=== PATIENT | male | born 1980 | race Caucasian/White ===

== ENCOUNTER 2021-06-06 19:24 | Emergency (ER) | payer BC, MEDICAID, SELFPAY ==
[2021-06-06 19:25] VITALS: BP 181/110; PULSE 86; RESP 16; TEMP 37.3; O2SAT 99; BMI 34.4
--- NOTE | 2021-06-06 19:30 | ECG_ITS ---
APPROVED REPORT Exam: Resting ECG HR:76 bpm ECG Measurements Heart Rate 76 AXES OH 147 P 65 QRSd 105 QRS 94 QT 390 T 53 QTc 420 Conclusion SINUS RHYTHM POSSIBLE RIGHT ATRIAL ENLARGEMENT [0.25mV P-WAVE] POSSIBLE LEFT ATRIAL ENLARGEMENT [-0.1mV P-WAVE IN V1/V2] BORDERLINE RIGHT AXIS DEVIATION [QRS AXIS > 90] BORDERLINE ECG UNCONFIRMED REPORT Electronically signed by : Gonzalo See MD 06/16/2021 17:38:10
[2021-06-06 19:48] VITALS: BP 141/90
--- NOTE | 2021-06-06 19:49 | CT_ITS ---
PROCEDURE INFORMATION: Exam: CT Head Without Contrast Exam date and time: 06/06/2021 8:04 PM Age: 40 years old Clinical indication: Other: Headache; Additional info: LUCIANO TECHNIQUE: Imaging protocol: Computed tomography of the head without contrast. Radiation optimization: All CT scans at this facility use at least one of these dose optimization techniques: automated exposure control; mA and/or kV adjustment per patient size (includes targeted exams where dose is matched to clinical indication); or iterative reconstruction. COMPARISON: No relevant prior studies available. FINDINGS: Brain: No large territorial infarction. No hemorrhage. No mass effect or midline shift. Cerebral ventricles: No ventriculomegaly. Paranasal sinuses: No fluid levels. Mastoid air cells: Visualized mastoid air cells are well aerated. Bones/joints: No acute fracture. Soft tissues: No significant soft tissue abnormality. IMPRESSION: No acute intracranial abnormality.
--- NOTE | 2021-06-06 19:49 | CT_ITS ---
PROCEDURE INFORMATION: Exam: CT Cervical Spine Without Contrast Exam date and time: 06/06/2021 8:06 PM Age: 40 years old Clinical indication: Neck pain; Additional info: Neck pain, and coughing TECHNIQUE: Imaging protocol: Computed tomography images of the cervical spine without contrast. Radiation optimization: All CT scans at this facility use at least one of these dose optimization techniques: automated exposure control; mA and/or kV adjustment per patient size (includes targeted exams where dose is matched to clinical indication); or iterative reconstruction. COMPARISON: CT HEAD/BRAIN WO CON 06/06/2021 8:04 PM FINDINGS: Bones/joints: Mild curvature on AP projection. No acute fracture. Lungs: Lung apices are normal. Soft tissues: No soft tissue swelling. IMPRESSION: No acute findings.
--- NOTE | 2021-06-06 19:49 | CT_ITS ---
PROCEDURE INFORMATION: Exam: CT Thoracic Spine Without Contrast Exam date and time: 06/06/2021 8:10 PM Age: 40 years old Clinical indication: Pain in thoracic spine; Additional info: Neck pain into shoulder TECHNIQUE: Imaging protocol: Computed tomography images of the thoracic spine without contrast. Radiation optimization: All CT scans at this facility use at least one of these dose optimization techniques: automated exposure control; mA and/or kV adjustment per patient size (includes targeted exams where dose is matched to clinical indication); or iterative reconstruction. COMPARISON: CT CERVICAL SPINE WO CON 06/06/2021 8:06 PM FINDINGS: Vertebrae: No acute fracture. Soft tissues: Unremarkable. Lungs: Dependent ground-glass pulmonary opacities with partially visualized granuloma within the posterior right lung. IMPRESSION: No acute osseous abnormality. If there is clinical concern for pulmonary pathology, chest CT can be obtained separately.
[2021-06-06 20:00] VITALS: BP 129/76; PULSE 85; O2SAT 97
[2021-06-06 20:03] LABS: Alanine Aminotransferase 64 U/L (12-78); Albumin Level 4.6 g/dl (3.5-5.0); Albumin/Globulin Ratio 1.4 (1.1-1.8); Alkaline Phosphatase 95 U/L (38-126); Anion Gap 12.7 mEq/L (5-15); Aspartate Amino Transferase 53 U/L (17-59); Basophils # 0.1 K/mm3 (0-0.2); Basophils % 2.1 % (0.1-2.0); Bilirubin,Total 0.6 mg/dl (0.2-1.3); Blood Urea Nitrogen 8 mg/dl (9-20); Calcium 8.8 mg/dl (8.4-10.2); Carbon Dioxide 25 mmol/L (22.0-30.0); Chloride 102 mmol/L (98-107); Creatinine Clearance Estimated 229 mL/min (50-200); Eosinophils # 0.2 K/mm3 (0.0-0.4); Eosinophils % 2.9 % (0.1-12.0); Estimated Glomerular Filt Rate 148 ml/min (>60); GFR (African American) 180 ML/MIN (>60); Globulin 3.2 g/dL (1.3-3.2); Glucose 103 mg/dl (74-100); Hematocrit 40.4 % (42.0-52.0); Hemoglobin 13.7 g/dL (14.1-18.0); Lymphocytes # 2.1 K/mm3 (0.7-4.5); Lymphocytes % 37.5 % (10-50); Mean Corpuscular Volume 85.3 fl (80-94); Mean Platelet Volume 7.6 fl (7.4-10.4); Monocytes # 0.3 K/mm3 (0.1-1.0); Monocytes % 5.9 % (1.7-9.3); Neutrophils % 51.7 % (37.0-80.0); Platelet Count 261 K/mm3 (142-424); Potassium 3.7 mmoL/L (3.5-5.1); Red Blood Count 4.73 M/mm3 (4.60-6.20); Red Cell Distribution Width 13.9 % (11.5-17.5); Sodium 136 mmol/L (136-145); Total Protein,Serum 7.8 g/dl (6.3-8.2); White Blood Count 5.7 K/mm3 (4.8-10.8)
--- NOTE | 2021-06-06 20:04 | PC.NURSE ---
Pt gone to RAD
--- NOTE | 2021-06-06 20:06 | [facility].EDGENADL ---
ED Disposition Clinical Impression: Cervical radicular pain Disposition: Home, Self-Care Condition on Discharge: Good Instructions: DI for Cervical Radiculopathy Additional Instructions: use meds and see pcp for follow up Prescriptions: predniSONE [Prednisone 20mg Tab] 20 mg PO BID #10 tab Transmission Status: Pending to [facility] Referrals: Ondina Dior APRN [Primary Care Provider] - - Critical Care Critical Care Time: No Attestation: On 06/06/21, the high probability of a clinically significant, sudden or life threatening deterioration of the following system(s) required my full and direct attention, intervention and personal management. The time I documented below is in addition to time spent performing reported procedures but includes the following listed in this critical care notation. Medical Decision Making - Medical Records Medical records reviewed: Yes: I reviewed the patient's medical records. - [place] Inquiry Pt receiving controlled substance: No Vital Signs: 06/06/21 19:25 Temperature 99.2 F Temperature Source Oral Pulse Rate [Right Radial] 86 Respiratory Rate 16 Blood Pressure [Right Arm] 181/110 H Blood Pressure Mean [Right Arm] 133 Blood Pressure Source [Right Arm] Automatic Cuff Blood Pressure Position [Right Arm] Sitting 02 Sat by Pulse Oximetry 99 Oxygen Delivery Method Room Air - Lab Data Lab results reviewed: Yes: I reviewed the patient's lab results. Lab Results 06/06/21 19:38: WBC 5.7, RBC 4.73, Hgb 13.7 L, Hct 40.4 L, MCV 85.3, MCH 29.0, MCHC 34.0, RDW 13.9, Plt Count 261, MPV 7.6, Neut % (Auto) 51.7, Lymph % (Auto) 37.5, [place] % (Auto) 5.9, Eos % (Auto) 2.9, Baso % (Auto) 2.1 H, Neut # (Auto) 3.0, Lymph # (Auto) 2.1, [place] # (Auto) 0.3, Eos # (Auto) 0.2, Baso # (Auto) 0.1 06/06/21 19:38: Sodium 136, Potassium 3.7, Chloride 102, Carbon Dioxide 25, Anion Gap 12.7, BUN 8 L, Creatinine 0.60 L, Estimated Creat Clear 229, Estimated GFR 148, Est GFR ( Amer) 180, Glucose 103 H, Calcium 8.8, Total Bilirubin 0.6, AST 53, ALT 64, Alkaline Phosphatase 95, C-Reactive Protein 2.6, Total Protein 7.8, Albumin 4.6, Globulin 3.2, Albumin/Globulin Ratio 1.4 Result diagrams: 06/06/21 19:38 06/06/21 19:38 Orders (Tests/Meds): ED MEDICATIONS Generic Name Dose Route Start Last Admin Trade Name Freq PRN Reason Stop Dose Admin Lactated Ringer's 1,000 mls @ 999 mls/hr 06/06/21 20:00 06/06/21 19:50 Lactated Ringer's 1000 Ml Bag IV 06/06/21 21:00 999 mls/hr .[id number] CLAUDIA Administration Discontinued Medications Generic Name Dose Route Start Last Admin Trade Name Freq PRN Reason Stop Dose Admin Ketorolac Tromethamine 30 mg 06/06/21 19:49 06/06/21 19:50 Ketorolac 30mg/Ml Vial IV 06/06/21 19:50 30 mg ONCE ONE Administration Methylprednisolone Sodium Succinate 125 mg 06/06/21 19:49 06/06/21 19:50 Methylprednisolone Sod Succ 125mg Vial IV 06/06/21 19:50 125 mg ONCE ONE Administration ORDERS Category Date Time Status Complete Blood Count Auto Diff Stat Lab 06/06/21 19:38 Results Erythrocyte Sedimentation Rate Stat Lab 06/06/21 19:38 Results - CT Data CT Scan: Head, C-Spine, T-Spine Time Received: 20:[address] Reviewed: Yes: I have viewed the radiologist's interpretation Preliminary Findings: No Fracture Seen - ECG Data Tracing #1 Normal Sinus Rhythm: Yes Ischemic changes: non-specific ST-T wave changes Medical Decision Narrative: pt presents with pron cervical radicular pain with stable exam and labs General Adult HPI - General Chief complaint: PAIN Stated complaint: pain in neck down back r Face /shoulder Time Seen by Provider: 06/06/21 20:07 Mode of Arrival: Ambulatory Source of Information: Patient, Spouse, Medical Record Limitations: No Limitations Description of Symptoms (Recalled from ER Triage Doc. by RN): Pt reports coughing a month ago and has pain in his neck that radiates into his right
[2021-06-06 20:08] LABS: C-Reactive Protein 2.6 mg/L (0-4)
--- NOTE | 2021-06-06 20:16 | PC.NURSE ---
Pt back from RAD
--- NOTE | 2021-06-06 20:28 | PC.NURSE ---
ER at bedside
[2021-06-06 20:35] LABS: Erythrocyte Sedimentation Rate 27 mm/hr (0-15)
--- NOTE | 2021-06-06 20:41 | PC.NURSE ---
ER at bedside
[2021-06-06 20:54] VITALS: BP 142/91; PULSE 69; RESP 16; TEMP 36.9; O2SAT 97
== END 2021-06-06 20:56 | disposition home or self-care (01) ==
PROVIDERS: Emergency Provider Emergency Medicine; PCP Nurse Practitioner Family
DX: M54.12 Radiculopathy, cervical region (principal); R51.9 Headache, unspecified; Z79.899 Other long term (current) drug therapy
CPT/HCPCS: 70450; 72125; 72128; 80053; 85025; 85651; 86140; 93005; 96365; 96375; 99284

== ENCOUNTER → 2021-08-24 13:09 | Outpatient (CLI) | payer BC, MEDICAID, SELFPAY ==
--- NOTE | 2021-08-24 13:12 | MR_ITS ---
FINAL REPORT CLINICAL HISTORY: Cervicalgia. NECK PAIN AND PAIN BETWEEN SCAPULAS. BILATERAL ARM PAIN [id number]. NO INJURY OR TRAUMA. FINDINGS: Multiplanar MR imaging of the cervical spine was performed without contrast. On the sagittal T2-weighted images, disc degeneration is seen at multiple levels. There is kyphosis centered on C4. There is a hemangioma in C7 vertebral body. There is no evidence of fracture. The vertebral alignment is normal. The cervical spinal cord has an unremarkable appearance without evidence of mass, edema or syrinx. No significant canal stenosis is identified. The cervicomedullary junction is normal. C2-3: There is no significant canal stenosis or neural foraminal narrowing. C3-4: Uncovertebral osteophytes are present with mild right neural foraminal narrowing. C4-5: Annular bulge and uncovertebral osteophytes are present. There is moderate right neural foraminal narrowing. C5-6: Uncovertebral osteophytes are present with mild right neural foraminal narrowing. C6-7: An annular bulge and uncovertebral osteophytes are present. There is mild right neural foraminal narrowing. C7-T1: There is no significant canal stenosis or neural foraminal narrowing. IMPRESSION: Multilevel degenerative disc disease and spondylosis. Reviewed, Interpreted and Dictated by Shiva Mulligan III, MD Transcribed by Pita Bray Authenticated and [facility]
== END ==
PROVIDERS: PCP Nurse Practitioner Family; Visit Provider Nurse Practitioner Family
DX: M54.2 Cervicalgia (principal)
CPT/HCPCS: 72141; 76376